=== PATIENT | male | born 1990 | race Caucasian/White ===

== ENCOUNTER 2017-12-02 12:37 | Emergency (ER) | END 2017-12-02 16:38 | disposition home or self-care (01) ==

== ENCOUNTER 2018-05-26 12:51 | Emergency (ER) | payer SELFPAY ==
[~2018-05-26] VITALS: Ht 172.7 cm; Wt 77.6 kg
[~2018-05-26 12:51] MED LIST: ACET325T33 PO
[2018-05-26 13:41] VITALS: BP 119/78; PULSE 73; RESP 18; Ht 172.7 cm; Wt 77.6 kg
== END 2018-05-26 15:20 | disposition left against medical advice (07) ==
LOC: E/R 12:51
DX: Z53.21 Procedure and treatment not carried out due to patient leaving prior to being seen by health care provider (principal)